=== PATIENT | female | born 1935 | race Caucasian/White ===

== ENCOUNTER → 2022-10-17 10:44 | Outpatient (CLI) | payer MEDICARE, SELFPAY ==
--- NOTE | ~2022-10-17 | MR_ITS ---
MRI of the brain Clinical History: Mental status change Technique: Axial and sagittal T1-weighted images were acquired. These were followed by axial T2-weigh concepción, diffusion weighted, gradient, and FLAIR images. Following intravenous administration of 14 cc Mu ltiHance gadolinium, T1-weighted fat-sat imaging was performed in the axial and coronal planes. Findings: There is no acute infarct, intracranial hemorrhage, or mass lesion. There are mild to moder ate chronic white matter changes in the periventricular white matter bilaterally. Small chronic lacun ar infarcts noted in the right basal ganglia. Ventricles and subarachnoid spaces are minimally prominent. Orbits are unremarkable. Paranasal sinuse s and mastoid air cells are clear. Major intracranial flow voids appear intact. Sagittal midline structures are intact. No abnormal intracranial postcontrast enhancement seen. IMPRESSION: No acute intracranial abnormality. Mild to moderate chronic white matter changes and chronic right basal ganglia lacunar infarcts. Reviewed, dictated and finalized at [facility]. IMPRESSION: No acute intracranial abnormality. Mild to moderate chronic white matter changes and chronic right basal ganglia l acunar infarcts.
== END ==
PROVIDERS: PCP Family Medicine; Visit Provider Nurse Practitioner Family
DX: R53.83 Other fatigue (principal); R47.81 Slurred speech; R41.0 Disorientation, unspecified; Z86.73 Personal history of transient ischemic attack (TIA), and cerebral infarction without residual deficits; R93.0 Abnormal findings on diagnostic imaging of skull and head, not elsewhere classified
CPT/HCPCS: 70553; A9577